=== PATIENT | female | born 1980 | race Caucasian/White ===

== ENCOUNTER 2016-11-14 02:07 | Emergency (ER) | payer BC ==
[~2016-11-14] VITALS: Ht 165.1 cm; Wt 65.4 kg
[2016-11-14] MEDS ORDERED: PROAIR HFA8.5 GM IH (02:47)
[2016-11-14 03:01] LABS: INTERNAL CONTROL VALID? YES; MONOSPOT (MONONUCLEOSIS SEROL) NEGATIVE
[2016-11-14] MEDS ORDERED: ZYRTEC10 M3 PO (04:15)
[2016-11-14] MEDS ORDERED: ZITHROMAX Z-PA250 MG PO (04:15)
[2016-11-14] MEDS ORDERED: MEDROL DOSEPAK4 MG PO (04:15)
[2016-11-14 04:33] VITALS: BP 126/83
== END 2016-11-14 04:36 | disposition home or self-care (01) ==
LOC: EME 02:07
PROVIDERS: Emergency Medicine
DX: J06.9 Acute upper respiratory infection, unspecified (principal)
CPT/HCPCS: 70360; 71020; 86308; 87651 90; 94640; 99281; 99284; J1100

== ENCOUNTER 2018-02-15 20:24 | Emergency (ER) | payer OTHER ==
[~2018-02-15] VITALS: Ht 165.1 cm; Wt 45.5 kg
[~2018-02-15 20:24] MED LIST: MEDROL DOSEPAK4 MG PO; PROAIR HFA8.5 GM IH; ZITHROMAX Z-PA250 MG PO; ZYRTEC10 M3 PO
[2018-02-15 20:32] VITALS: BP 109/69
[2018-02-16] MEDS ORDERED: ZOFRAN ODT4 MG PO (00:40)
== END 2018-02-16 01:33 | disposition home or self-care (01) ==
LOC: EME 20:24
DX: F10.129 Alcohol abuse with intoxication, unspecified (principal); J45.909 Unspecified asthma, uncomplicated; Z88.1 Allergy status to other antibiotic agents
CPT/HCPCS: 99281; 99284; J2405; J7030; S0028